=== PATIENT | male | born 1960 | race Hispanic/Latino ===

== ENCOUNTER 2019-08-11 14:24 | Emergency (ER) | payer OTHER ==
[~2019-08-11] VITALS: Ht 175.3 cm; Wt 119.9 kg
--- NOTE | 2019-08-11 15:35 | Diagnostic Imaging Report ---
EXAMINATION: FOOT 3 VIEW RT - HOPD INDICATION: Penetrating trauma. COMPARISON: None FINDINGS: No acute fracture or dislocation. Alignment is anatomic. There is a tiny 1 mm radiopaque structure in the soft tissues of the heel approximately 5 mm beneath the skin. The remaining soft tissues appear unremarkable. Small plantar calcaneal spur. Atherosclerotic vascular calcifications. IMPRESSION: No acute osseous injury. Tiny 1 mm radiopaque structure in the soft tissues of the heel approximate 5 mm beneath the skin. Given history of stepping on a nail, this may represent a tiny foreign body. Signed by: Mary Davidson MD on 08/11/2019 3:32 PM
[2019-08-11] MEDS ORDERED: TETANUS/DIPHTHERIA TOX ADULT 0.5 ML SYR IM ONE (16:15)
[2019-08-11] MEDS ORDERED: TETANUS/DIPHTHERIA TOX ADULT 0.5 ML SYR ONE (16:26)
[2019-08-11 16:37] VITALS: BP 113/65
== END 2019-08-11 16:45 | disposition home or self-care (01) ==
LOC: FSED 14:24
DX: S91.341A Puncture wound with foreign body, right foot, initial encounter (principal); L03.115 Cellulitis of right lower limb
CPT/HCPCS: 90471; 90714; 96372; 99283

== ENCOUNTER 2021-02-02 13:49 | Inpatient (IN) | payer MEDICAID, MEDICARE ==
[~2021-02-02] VITALS: Ht 175.3 cm; Wt 116.7 kg
[2021-02-02] MEDS ORDERED: ACETAMINOPHEN 325 MG TAB PO ONE (14:00)
[2021-02-02] MEDS ORDERED: CEFTRIAXONE SOD 1 GM VIAL IV ONE (14:00)
[2021-02-02] MEDS ORDERED: ONDANSETRON HCL INJ 2MG/ML 2ML 2 MG/ML VIAL IV PRN (14:00)
[2021-02-02] MEDS ORDERED: ASPIRIN 81 MG CHEW TAB PO ONE (14:00)
[2021-02-02] MEDS ORDERED: NITROGLYCERIN 2% OINT 1 GM PKT TOP ONE (14:00)
[2021-02-02] MEDS ORDERED: NITROGLYCERIN 2% OINT 1 GM PKT ONE (14:35)
[2021-02-02] MEDS ORDERED: ASPIRIN 325 MG TAB ONE (14:35)
[2021-02-02] MEDS ORDERED: ACETAMINOPHEN 325 MG TAB ONE (14:35)
[2021-02-02] MEDS ORDERED: CEFTRIAXONE SOD 1 GM 50 ML IV ONE (14:36)
[2021-02-02] MEDS ORDERED: DEXTROSE 50% SYRINGE 50 ML IV PRN (16:00)
[2021-02-02] MEDS ORDERED: INSULIN REGULAR, HUMAN 100 UNIT/1 ML 3ML VIAL IV ONE (16:00)
[2021-02-02] MEDS ORDERED: SODIUM CHLORIDE FLUSH 10 ML SYR INJ PRN (16:00)
[2021-02-02] MEDS: FUROSEMIDE INJ 10 MG/ML 4 ML VIAL IV SCH (16:15)
[2021-02-02] MEDS: INSULIN REGULAR, HUMAN 100 UNIT/1 ML 3ML VIAL SQ SCH ×2 (18:26→21:00)
[2021-02-02] MEDS: ENOXAPARIN SOD INJ 40 MG/0.4 ML SYR SC SCH (18:32)
[2021-02-02] MEDS: CARVEDILOL 3.125 MG TAB PO SCH (18:40)
[2021-02-02] MEDS: SPIRONOLACTONE 25 MG TAB PO SCH (18:40)
[2021-02-02] MEDS ORDERED: ENOXAPARIN SODIUM INJ 100 MG/ML SYR SC ONE (18:42)
[2021-02-02 19:24] VITALS: BP 142/74
[2021-02-02] MEDS ORDERED: ULTRAM 50MG50 MG PO (20:06)
[2021-02-02] MEDS ORDERED: HUMALOG100 UNIT/3 SQ (20:06)
[2021-02-02] MEDS ORDERED: VITAMIN D250 MCG (20:06)
[2021-02-02] MEDS ORDERED: FUROSEMIDE40 MG PO (20:06)
[2021-02-02] MEDS ORDERED: IBUPROFEN800 MG PO (20:06)
[2021-02-02] MEDS ORDERED: LEVEMIR FL100 UNIT/1 SQ (20:06)
[2021-02-02] MEDS ORDERED: CLOPIDOGREL75 MG PO (20:06)
[2021-02-02] MEDS ORDERED: GABAPENTIN300 MG PO (20:06)
[2021-02-02] MEDS ORDERED: ENALAPRIL MALEA20 MG PO (20:06)
[2021-02-02 20:26] VITALS: BP 142/74
[2021-02-02] MEDS ORDERED: GABAPENTIN 300 MG CAP PO ONE (22:15)
[2021-02-02] MEDS ORDERED: TRAMADOL HCL 50 MG TAB PO ONE (22:15)
[2021-02-02 23:07] LABS: CREATINE KINASE MB 3.9 ng/mL (0-5.0)
[2021-02-03] VITALS (9 sets, daily range): BP systolic 111–154; BP diastolic 52–83
[2021-02-03] MEDS: INSULIN REGULAR, HUMAN 100 UNIT/1 ML 3ML VIAL SQ SCH ×4 (07:30→21:00)
[2021-02-03 08:56] LABS: CREATINE KINASE MB 2.9 ng/mL (0-5.0)
[2021-02-03] MEDS ORDERED: LOSARTAN POTASSIUM 25 MG TAB PO SCH (09:00)
[2021-02-03] MEDS: ASPIRIN 81 MG CHEW TAB PO SCH (09:00)
[2021-02-03] MEDS: CARVEDILOL 3.125 MG TAB PO SCH ×2 (09:00→17:00)
[2021-02-03] MEDS: SPIRONOLACTONE 25 MG TAB PO SCH ×2 (09:00→17:00)
[2021-02-03] MEDS: GABAPENTIN 300 MG CAP PO SCH ×2 (09:00→17:00)
[2021-02-03] MEDS: TRAMADOL HCL 50 MG TAB PO SCH ×2 (09:00→17:00)
[2021-02-03] MEDS: FUROSEMIDE INJ 10 MG/ML 4 ML VIAL IV SCH ×2 (09:00→17:00)
[2021-02-03 09:56] LABS: BASOPHILS # (AUTO) 0.1 (0.0-0.1); BASOPHILS % 0.7 % (0.0-1.0); EOSINOPHILS # (AUTO) 0.5 (0.0-0.4); EOSINOPHILS % 5.9 % (0.0-6.0); HEMATOCRIT 43.4 % (38.2-49.6); HEMOGLOBIN 13.9 g/dL (14.0-18.0); LYMPHOCYTES # (AUTO) 1.3 (1.0-3.2); LYMPHOCYTES % 15.8 % (18.0-39.1); MEAN CORPUSCULAR HEMOGLOBIN 26.5 pg (28-32); MEAN CORPUSCULAR VOLUME 82.8 fL (81-99); MONOCYTES # (AUTO) 0.9 (0.2-0.8); MONOCYTES % 10.6 % (4.4-11.3); NEUTROPHILS # (AUTO) 5.5 (2.1-6.9); NEUTROPHILS % 66.2 % (38.7-80.0); PLATELET COUNT 247 x10e3/uL (140-360); RED BLOOD COUNT 5.24 x10e6/uL (4.3-5.7); RED CELL DISTRIBUTION WIDTH 14.2 % (11.7-14.4)
[2021-02-03] MEDS ORDERED: DOCUSATE SODIUM 100 MG CAP PO PRN (10:00)
[2021-02-03] MEDS ORDERED: ZOLPIDEM TARTRATE 5 MG TAB PO PRN (10:00)
[2021-02-03 10:07] LABS: CHOL/HDL RATIO 6.6 (3.9-4.7)
[2021-02-03 10:10] LABS: ALBUMIN 2.7 g/dL (3.5-5.0); ALBUMIN/GLOBULIN RATIO 0.8 (0.8-2.0); ANION GAP 13.6 mmol/L (8-16); CALCIUM 8.7 mg/dL (8.4-10.2); CREATININE, SERUM 1.31 mg/dL (0.72-1.25); POTASSIUM 4.6 mmol/L (3.5-5.1)
[2021-02-03] MEDS ORDERED: CLOPIDOGREL BISULFATE 75 MG TAB PO NR (11:05)
[2021-02-03] MEDS ORDERED: INSULIN GLARGINE 100 UNITS/ML VIAL SQ NR (11:15)
[2021-02-03] MEDS: ENALAPRIL MALEATE 10 MG TAB PO SCH (11:30)
[2021-02-03] MEDS: ACETAMINOPHEN 325 MG TAB PO PRN (13:15)
[2021-02-03] MEDS ORDERED: MORPHINE SULFATE INJ 4 MG/ML INJ 1ML IV PRN (13:45)
[2021-02-03] MEDS: FAMOTIDINE 20 MG TAB PO SCH (16:30)
[2021-02-03 16:36] LABS: CREATINE KINASE MB 2.6 ng/mL (0-5.0)
[2021-02-03] MEDS: ENOXAPARIN SOD INJ 40 MG/0.4 ML SYR SC SCH (17:00)
[2021-02-04] VITALS (9 sets, daily range): BP systolic 104–139; BP diastolic 53–68
[2021-02-04] MEDS: ACETAMINOPHEN 325 MG TAB PO PRN (01:31)
[2021-02-04 07:00] LABS: BASOPHILS # (AUTO) 0.1 (0.0-0.1); BASOPHILS % 0.7 % (0.0-1.0); EOSINOPHILS # (AUTO) 0.6 (0.0-0.4); EOSINOPHILS % 5.7 % (0.0-6.0); HEMATOCRIT 37.6 % (38.2-49.6); HEMOGLOBIN 11.9 g/dL (14.0-18.0); LYMPHOCYTES # (AUTO) 1.8 (1.0-3.2); LYMPHOCYTES % 17.2 % (18.0-39.1); MEAN CORPUSCULAR HEMOGLOBIN 26.6 pg (28-32); MEAN CORPUSCULAR HGB CONC 31.6 g/dL (31-35); MEAN CORPUSCULAR VOLUME 84.1 fL (81-99); MONOCYTES # (AUTO) 1.4 (0.2-0.8); MONOCYTES % 13.2 % (4.4-11.3); NEUTROPHILS # (AUTO) 6.5 (2.1-6.9); NEUTROPHILS % 62.2 % (38.7-80.0); PLATELET COUNT 228 x10e3/uL (140-360); RED BLOOD COUNT 4.47 x10e6/uL (4.3-5.7); RED CELL DISTRIBUTION WIDTH 14.2 % (11.7-14.4)
[2021-02-04 07:16] LABS: ANION GAP 11.5 mmol/L (8-16); CALCIUM 8.3 mg/dL (8.4-10.2); CREATININE, SERUM 1.8 mg/dL (0.72-1.25); POTASSIUM 4.5 mmol/L (3.5-5.1)
[2021-02-04] MEDS: INSULIN REGULAR, HUMAN 100 UNIT/1 ML 3ML VIAL SQ SCH ×4 (08:30→21:29)
[2021-02-04] MEDS: FAMOTIDINE 20 MG TAB PO SCH ×2 (08:30→16:23)
[2021-02-04] MEDS: INSULIN GLARGINE 100 UNITS/ML VIAL SQ SCH (08:30)
[2021-02-04] MEDS: CLOPIDOGREL BISULFATE 75 MG TAB PO SCH (08:41)
[2021-02-04] MEDS: ASPIRIN 81 MG CHEW TAB PO SCH (08:41)
[2021-02-04] MEDS: GABAPENTIN 300 MG CAP PO SCH ×2 (08:41→16:23)
[2021-02-04] MEDS: CARVEDILOL 3.125 MG TAB PO SCH ×2 (08:41→16:23)
[2021-02-04] MEDS: SPIRONOLACTONE 25 MG TAB PO SCH ×2 (08:41→16:23)
[2021-02-04] MEDS: TRAMADOL HCL 50 MG TAB PO SCH ×2 (08:42→18:30)
[2021-02-04] MEDS: ENALAPRIL MALEATE 10 MG TAB PO SCH (08:42)
[2021-02-04] MEDS: FUROSEMIDE INJ 10 MG/ML 4 ML VIAL IV SCH ×2 (10:00→16:23)
[2021-02-04] MEDS: ENOXAPARIN SOD INJ 40 MG/0.4 ML SYR SC SCH (16:23)
[2021-02-04] MEDS: ATORVASTATIN 20 MG TAB PO SCH (21:29)
[2021-02-05] VITALS (7 sets, daily range): BP systolic 135–160; BP diastolic 63–83
[2021-02-05] MEDS: INSULIN REGULAR, HUMAN 100 UNIT/1 ML 3ML VIAL SQ SCH ×4 (08:00→20:50)
[2021-02-05 08:54] LABS: ANION GAP 15.2 mmol/L (8-16); CALCIUM 8.8 mg/dL (8.4-10.2); CREATININE, SERUM 2.05 mg/dL (0.72-1.25)
[2021-02-05] MEDS: FAMOTIDINE 20 MG TAB PO SCH ×2 (08:54→17:27)
[2021-02-05] MEDS: SPIRONOLACTONE 25 MG TAB PO SCH ×2 (08:54→17:26)
[2021-02-05] MEDS: ASPIRIN 81 MG CHEW TAB PO SCH (08:54)
[2021-02-05] MEDS: GABAPENTIN 300 MG CAP PO SCH ×2 (08:55→17:27)
[2021-02-05] MEDS: CARVEDILOL 3.125 MG TAB PO SCH ×2 (08:55→17:26)
[2021-02-05] MEDS: CLOPIDOGREL BISULFATE 75 MG TAB PO SCH (08:55)
[2021-02-05] MEDS: TRAMADOL HCL 50 MG TAB PO SCH ×2 (08:55→17:27)
[2021-02-05] MEDS: INSULIN GLARGINE 100 UNITS/ML VIAL SQ SCH (09:00)
[2021-02-05] MEDS: FUROSEMIDE INJ 10 MG/ML 4 ML VIAL IV SCH (09:00)
[2021-02-05 09:02] LABS: POTASSIUM 5.2 mmol/L (3.5-5.1)
[2021-02-05] MEDS: ENALAPRIL MALEATE 10 MG TAB PO SCH (12:00)
[2021-02-05] MEDS ORDERED: PERFLUTREN LIPID MICROSPHERES 2 ML VIAL IV ONE (13:26)
[2021-02-05] MEDS: ENOXAPARIN SOD INJ 40 MG/0.4 ML SYR SC SCH (17:27)
[2021-02-05] MEDS: ATORVASTATIN 20 MG TAB PO SCH (20:49)
[2021-02-06 00:27] VITALS: BP 118/68
[2021-02-06 05:52] VITALS: BP 107/44
[2021-02-06 06:01] LABS: ANION GAP 10.7 mmol/L (8-16); CALCIUM 8.7 mg/dL (8.4-10.2); CREATININE, SERUM 1.79 mg/dL (0.72-1.25); POTASSIUM 4.7 mmol/L (3.5-5.1)
[2021-02-06] MEDS ORDERED: COREG3.125 MG PO (06:56)
[2021-02-06] MEDS ORDERED: LIPITOR20 MG PO (06:56)
[2021-02-06] MEDS ORDERED: ASPIRIN CHEW81 MG PO (06:56)
[2021-02-06] MEDS ORDERED: FAMOTIDINE20 MG PO (06:56)
[2021-02-06] MEDS: INSULIN REGULAR, HUMAN 100 UNIT/1 ML 3ML VIAL SQ SCH (07:30)
[2021-02-06] MEDS: FAMOTIDINE 20 MG TAB PO SCH (07:30)
[2021-02-06 07:56] VITALS: BP 126/69
[2021-02-06 08:36] VITALS: BP 126/69
[2021-02-06] MEDS: INSULIN GLARGINE 100 UNITS/ML VIAL SQ SCH (09:00)
[2021-02-06] MEDS: FUROSEMIDE INJ 10 MG/ML 4 ML VIAL IV SCH (09:00)
[2021-02-06] MEDS: ASPIRIN 81 MG CHEW TAB PO SCH (09:00)
[2021-02-06] MEDS: CARVEDILOL 3.125 MG TAB PO SCH (09:00)
[2021-02-06] MEDS: ENALAPRIL MALEATE 10 MG TAB PO SCH (09:00)
[2021-02-06] MEDS: TRAMADOL HCL 50 MG TAB PO SCH (09:00)
[2021-02-06] MEDS: CLOPIDOGREL BISULFATE 75 MG TAB PO SCH (09:00)
[2021-02-06] MEDS: GABAPENTIN 300 MG CAP PO SCH (09:00)
[2021-02-06] MEDS: SPIRONOLACTONE 25 MG TAB PO SCH (09:00)
== END 2021-02-06 10:25 | disposition home or self-care (01) | DRG 291 ==
LOC: FSED 14:15 → INTOOBSV 16:47 → ERHOLD 16:47 → MED/SURG2 19:24 → OBSVTOIN 02-04 15:23
PROVIDERS: ADMIT Internal Medicine; ATTEND Internal Medicine
DX: I11.0 Hypertensive heart disease with heart failure (principal); I50.21 Acute systolic (congestive) heart failure; E11.9 Type 2 diabetes mellitus without complications; R07.9 Chest pain, unspecified; E78.5 Hyperlipidemia, unspecified; I50.23 Acute on chronic systolic (congestive) heart failure; E66.9 Obesity, unspecified; Z68.38 Body mass index [BMI] 38.0-38.9, adult; Z86.73 Personal history of transient ischemic attack (TIA), and cerebral infarction without residual deficits; Z95.1 Presence of aortocoronary bypass graft; Z20.822 Contact with and (suspected) exposure to COVID-19
CPT/HCPCS: 36415; 71045; 76770; 80048; 80053; 80061; 82550; 82553; 82948; 83036; 83518; 83880; 84484; 85025; 87400; 93005; 93306; 93307; 96374; 96375; 99284; G0378; J0696; J1650; J1815; J1817; J1940; J2270; J2405; U0002